=== PATIENT | male | born 1950 | race Caucasian/White ===

== ENCOUNTER → 2017-02-17 | Outpatient (CLI) | payer MEDICARE ==
--- NOTE | 2017-02-19 20:51 | SLEEPCENT ---
DATE OF PROCEDURE: 02/17/2017 ORDERED BY: Maricarmen Marie Nocturnal polysomnography was performed due to concern for the obstructive sleep apnea syndrome in this patient with a history of excessive somnolence and snoring. 6 hours and 22 minutes of data were reviewed. There 276 minutes of sleep identified. Sleep latency was mildly prolonged at 23.5 minutes. Rapid eye movement (REM) latency was normal at 88 minutes. Sleep architecture showed fragmentation and poor sleep progression. There were 3 REM periods appreciated. Overall sleep efficiency was 73.5%. The patient's EKG showed a sinus rhythm with an average heart rate of 70 beats per minute. EEG showed reasonably normal waveforms for awake and sleep, some mild coarsening in background is noted. There were 98 respiratory events identified of 10 seconds in duration or greater for an apnea-hypopnea index of 21.3. The events were not exclusive to sleep stage nor body posture. They were predominantly obstructive. Arousals from respiratory events occurred 6.3 times per hour and oxygen desaturations were seen into the 80s. There was some minor limb activity appreciated. No clear trains of events. Snoring was noted. Other measures of sleep physiology were normal. IMPRESSION: Moderate obstructive sleep apnea syndrome (G47.33). Apnea-hypopnea index 21.3. RECOMMENDATIONS: The patient should be encouraged to return to the sleep disorder center for pressure therapy. In the interim, alcohol and sedative avoidance should be practiced and caution exercised during the operation of motor vehicles. Copy To: Dr. Jose
== END ==
LOC: M SLEEP 20:00
PROVIDERS: ATTEND Nurse Practitioner Adult Health
DX: G47.33 Obstructive sleep apnea (adult) (pediatric) (principal)

== ENCOUNTER → 2017-04-14 | Outpatient (CLI) | payer MEDICARE ==
--- NOTE | 2017-04-16 10:00 | SLEEPCENT ---
DATE OF PROCEDURE: 04/14/2017 ORDERED BY: Maricarmen Marie Nocturnal polysomnography was performed for the titration of pressure therapy in this patient with obstructive sleep apnea and apnea-hypopnea index of 21. For testing, a [employer]Med Quattro full face mask of medium size was used. 4 cm of water pressure were applied to the circuit and the lights were extinguished. 6 hours and 24 minutes of data were reviewed. There were 211 minutes of sleep identified. Sleep latency was prolonged at 44 minutes. Rapid eye movement (REM) latency was prolonged at 118 minutes. Sleep architecture initially improved with pressure therapy, but there a period of wake between 2:15 and 3:15 resulting in a decrease in sleep efficiency to 55.9%. Electrocardiogram (EKG) showed a sinus rhythm with occasional artifact. Average heart rate 65 beats per minute. Electroencephalogram (EEG) showed fairly normal waveforms for awake and sleep. Respiratory events were reasonably palliated with CPAP at 7 cm of water. Oxygen was added late in the study for mild desaturations. However, insufficient sleep after this point precluded a determination on its need. There was some limb activity appreciated scattered over the course of the study. Limb movement arousal index was 10.2, but there was only 1 train of events. IMPRESSION: Obstructive sleep apnea syndrome (G47.33). RECOMMENDATION: Nightly use of pressure therapy at 7 cm of water is recommended. Given the desaturations late in the study, a followup nocturnal oximetry may be reasonable to assure adequate saturation on this setting.
== END ==
LOC: M SLEEP 20:00
PROVIDERS: ATTEND Nurse Practitioner Adult Health
DX: G47.33 Obstructive sleep apnea (adult) (pediatric) (principal)

== ENCOUNTER → 2017-09-02 | Outpatient (REF) | payer MEDICARE | LOC: M LAB REF 16:29 | PROVIDERS: ATTEND Obstetrics & Gynecology | DX: N32.81 Overactive bladder (principal); N39.41 Urge incontinence ==

== ENCOUNTER → 2021-09-29 | Outpatient (CLI) | payer MEDICARE | LOC: M PLAIMG 10:54 | PROVIDERS: ATTEND Physician Assistant | DX: R91.8 Other nonspecific abnormal finding of lung field (principal) ==

== ENCOUNTER → 2021-10-10 | Outpatient (CLI) | payer MEDICARE ==
--- NOTE | 2021-10-10 11:15 | PFTRPT ---
Height: 67.00 Inches Weight: 278.00 Lbs BSA: 2.33 Diagnosis: R06.00 DATE: 10/10/2021 ORDERING PHYSICIAN: DEBBIE Hancock Pre and post bronchodilator studies have excellent technical quality. Some difficulty with the maneuver is noted. Forced vital capacity is reduced. FEV1 is in borderline proportion. Obstructive index is therefore borderline as well. Expiratory limit of the flow-volume loop does suggest very significant flow rate limitation. No significant bronchodilator response is identified. Total lung capacity is elevated. Residual volume is consistent with air trapping. Diffusing capacity is unable to be performed due to the patient's inability to perform the required maneuvers. Hemoglobin is acceptable at 14.7. However, resistance and conductance are normal. IMPRESSION: Suspect significant underlying obstructive ventilatory impairment with air trapping versus true concomitant restriction. Clinical correlation with the above is necessary. MTDD
== END ==
LOC: M CARPUL 10:30
PROVIDERS: ATTEND Physician Assistant
DX: R06.00 Dyspnea, unspecified (principal)

== ENCOUNTER → 2022-11-19 | Outpatient (CLI) | payer MEDICARE | LOC: M RAD 10:56 | PROVIDERS: ATTEND Physician Assistant | DX: Z87.891 Personal history of nicotine dependence (principal) ==

== ENCOUNTER → 2023-11-20 | Outpatient (RCR) | payer MEDICARE | END | disposition still patient (30) | LOC: M OT 10-28 09:25 | PROVIDERS: ATTEND Physician Assistant Medical | DX: M25.511 Pain in right shoulder (principal) ==

== ENCOUNTER 2023-12-04 09:53 | Outpatient (RCR) | payer MEDICARE | END 2023-12-19 | LOC: M OT 09:53 | PROVIDERS: ATTEND Physician Assistant Medical | DX: M25.511 Pain in right shoulder (principal) ==

== ENCOUNTER 2024-01-17 10:46 | Outpatient (RCR) | payer MEDICARE | END 2024-01-19 | LOC: M OT 10:46 | PROVIDERS: ATTEND Physician Assistant Medical | DX: M25.511 Pain in right shoulder (principal) ==

== ENCOUNTER 2024-02-07 09:40 | Outpatient (RCR) | payer MEDICARE | END 2024-02-18 | LOC: M OT 09:40 | PROVIDERS: ATTEND Physician Assistant Medical | DX: M25.511 Pain in right shoulder (principal) ==

== ENCOUNTER → 2024-05-04 | Day surgery (SDC) | payer MEDICARE, MEDICAID ==
[~2024-05-04] VITALS: Ht 170.2 cm; Wt 112.8 kg
[~2024-05-04] MED LIST: ALBU8.5H INH; ALIR150P4 SQ; BASA100I SQ; BUDE10.7 INH; BUME1TAB3 PO; CHOL12508 PO; CLOP75TA2 PO; DEXTROSE 50% 50ML SYRINGE IV PRN; ECOT81TA5 PO; ELIQ5TAB PO; ENTR1TAB7 PO; GABA-282 PO; GLUCAGON INJ 1MG VIAL SC PRN; GLUCOSE 4 GM CHEW PO PRN; INSULIN LISPRO (NovoLOG) PER UNIT SC PRN; JARD1TAB PO; LANTINJ4 SQ; LR 1,000 ML IV SCH; METF500T13 PO; MIDAZOLAM INJ 2MG/2ML VIAL As Ordered ONE; ROSU10TA61 PO; SOTA80TA2 PO; fentaNYL 100 MCG/2 ML INJECTION As Ordered ONE
[2024-05-04] MEDS: FLURBIPROFEN 0.03% OPHTH SOLN 2.5 ML OD SCH (07:11)
[2024-05-04] MEDS: TETRACAINE 0.5% OPHTH SOLN 4ML OD SCH (07:11)
[2024-05-04] MEDS: PHENYLEPHRINE 2.5% OPHTH SOL 2ML OD SCH (07:11)
[2024-05-04] MEDS: ATROPINE SULFATE 1% OPHTH SOLN 2ML BTL OD SCH (07:11)
[2024-05-04] MEDS: LIDOCAINE 1% SDV 5ML VIAL As Ordered ONE (08:18)
[2024-05-04] MEDS: CEFUROXIME 1MG/0.1ML INTRACAMERAL INJ As Ordered ONE (08:20)
[2024-05-04 08:50] VITALS: BP 132/65; TEMP 98.1; O2SAT 98
== END | disposition home or self-care (01) ==
LOC: M SDC 06:24
PROVIDERS: ATTEND Ophthalmology
DX: H25.11 Age-related nuclear cataract, right eye (principal); I48.91 Unspecified atrial fibrillation; Z95.0 Presence of cardiac pacemaker; Z95.5 Presence of coronary angioplasty implant and graft; E11.9 Type 2 diabetes mellitus without complications; G47.30 Sleep apnea, unspecified; I10 Essential (primary) hypertension; M19.90 Unspecified osteoarthritis, unspecified site; J44.9 Chronic obstructive pulmonary disease, unspecified; M54.9 Dorsalgia, unspecified; Z87.891 Personal history of nicotine dependence; Z79.899 Other long term (current) drug therapy; Z79.51 Long term (current) use of inhaled steroids; Z79.4 Long term (current) use of insulin; Z79.84 Long term (current) use of oral hypoglycemic drugs; Z79.02 Long term (current) use of antithrombotics/antiplatelets; Z79.82 Long term (current) use of aspirin
CPT/HCPCS: 66984; J0697; J2250; J3010; V2632

== ENCOUNTER 2024-07-06 10:46 | Day surgery (SDC) | payer MEDICARE, MEDICAID ==
[~2024-07-06] VITALS: Ht 170.2 cm; Wt 113.5 kg
[~2024-07-06 10:46] MED LIST changes: +ATROPINE SULFATE 1% OPHTH SOLN 2ML BTL OS SCH; -DEXTROSE 50% 50ML SYRINGE IV PRN; +FLURBIPROFEN 0.03% OPHTH SOLN 2.5 ML OS SCH; -GLUCAGON INJ 1MG VIAL SC PRN; -GLUCOSE 4 GM CHEW PO PRN; -INSULIN LISPRO (NovoLOG) PER UNIT SC PRN; -MIDAZOLAM INJ 2MG/2ML VIAL As Ordered ONE; +PHENYLEPHRINE 2.5% OPHTH SOL 2ML OS SCH; +TETRACAINE 0.5% OPHTH SOLN 4ML OS SCH; +VITA100093 PO; -fentaNYL 100 MCG/2 ML INJECTION As Ordered ONE
[2024-07-06] MEDS ORDERED: MIDAZOLAM INJ 2MG/2ML VIAL As Ordered ONE (13:05)
[2024-07-06] MEDS: CEFUROXIME 1MG/0.1ML INTRACAMERAL INJ As Ordered ONE (13:26)
[2024-07-06] MEDS: LIDOCAINE 1% SDV 5ML VIAL As Ordered ONE (13:26)
[2024-07-06 13:41] VITALS: BP 95/61; TEMP 97; O2SAT 96
[2024-07-06] MEDS: TETRACAINE 0.5% OPHTH SOLN 4ML OS SCH (13:43)
[2024-07-06] MEDS: FLURBIPROFEN 0.03% OPHTH SOLN 2.5 ML OS SCH (13:43)
[2024-07-06] MEDS: ATROPINE SULFATE 1% OPHTH SOLN 2ML BTL OS SCH (13:44)
[2024-07-06] MEDS: PHENYLEPHRINE 2.5% OPHTH SOL 2ML OS SCH (13:44)
== END 2024-07-06 13:55 | disposition home or self-care (01) ==
LOC: M SDC 10:46
PROVIDERS: ATTEND Ophthalmology
DX: H25.12 Age-related nuclear cataract, left eye (principal); I48.91 Unspecified atrial fibrillation; I25.10 Atherosclerotic heart disease of native coronary artery without angina pectoris; E11.9 Type 2 diabetes mellitus without complications; G47.30 Sleep apnea, unspecified; Z95.0 Presence of cardiac pacemaker; Z95.5 Presence of coronary angioplasty implant and graft; Z98.41 Cataract extraction status, right eye; Z87.891 Personal history of nicotine dependence; Z79.899 Other long term (current) drug therapy
CPT/HCPCS: 66984; J0697; J2250; V2632